=== PATIENT | female | born 1975 | race Native Hawaiian/Other Pacific Islander ===

== ENCOUNTER 2019-08-09 02:03 | Observation (INO) | payer OTHER ==
[~2019-08-09] VITALS: Ht 165.1 cm; Wt 90.9 kg
[2019-08-09 02:13] VITALS: BP 169/87; TEMP 97.7
[2019-08-09 02:45] LABS: PLATELET COUNT 258 K/uL (152-353)
[2019-08-09 02:57] LABS: POTASSIUM 3.4 mmol/L (3.6-5.2)
[2019-08-09 04:31] VITALS: BP 140/78; TEMP 98.6; Ht 165.1 cm; Wt 90.9 kg
[2019-08-09 08:00] VITALS: BP 140/62; TEMP 97.6
[2019-08-09 12:00] VITALS: BP 155/66; TEMP 97.7
[2019-08-09 16:00] VITALS: BP 144/74; TEMP 97.5
[2019-08-09] MEDS ORDERED: AZIT250T3 PO (16:19)
[2019-08-09] MEDS ORDERED: IPRATROPIUM/ INH (16:21)
[2019-08-09] MEDS ORDERED: PRED10TA27 PO (16:22)
--- NOTE | 2019-08-09 17:17 | NUR ---
PT DISCHARGED TO HOME. IV TO L AC WAS D/C'D, PRESSURE APPLIED, AND BANDAID APPLIED. PT TOLERATED WITH NO ACUTE DISTRESS NOTED. PT DECLINED TO BE TRANSPORTED OUT OF FACILITY VIA W/C AND OPTED TO AMBULATE AND ESCORTED BY FAMILY MEMBER. MEDS WERE SENT INTO [facility] IN [place] AND A LIST OF LOCAL PCP'S WERE GIVEN TO PT AND SHE WAS INSTRUCTED TO CONTACT ONE FOR A FOLLOW UP APPT. IN 3-5 DAYS. NO ACUTE DISTRESS NOTED.
== END 2019-08-09 17:14 | disposition home or self-care (01) ==
LOC: ED 02:03 → MED/SURG 03:28
PROVIDERS: ADMIT Student in an Organized Health Care Education/Training Program
DX: J45.901 Unspecified asthma with (acute) exacerbation (principal); Z72.0 Tobacco use
CPT/HCPCS: 80048; 83735; 85027; 87502; 93005; 94640; 94664; 94760; 96360; 96365; 96375; 99220; 99284; G0378; J0456; J1956; J2930

== ENCOUNTER 2019-09-15 16:49 | Inpatient (IN) | payer OTHER ==
[~2019-09-15] VITALS: Ht 165.1 cm; Wt 93.4 kg
[~2019-09-15 16:49] MED LIST: AZIT250T3 PO; IPRATROPIUM/ INH; PRED10TA27 PO
[2019-09-15 16:50] VITALS: BP 167/76; TEMP 98
[2019-09-15 17:17] LABS: PLATELET COUNT 306 K/uL (152-353)
[2019-09-15 23:00] VITALS: BP 159/85
[2019-09-15 23:22] VITALS: BP 123/92; TEMP 98.4; Ht 165.1 cm; Wt 93.4 kg
[2019-09-16] VITALS (18 sets, daily range): BP systolic 102–154; BP diastolic 64–92; TEMP 97.5–98.4
[2019-09-16 05:48] LABS: PLATELET COUNT 260 K/uL (152-353)
[2019-09-16 05:59] LABS: POTASSIUM 4.5 mmol/L (3.6-5.2)
[2019-09-16] MEDS ORDERED: ALBU0.0813 INH (16:55)
[2019-09-16] MEDS ORDERED: BUDE1AER3 INH (16:55)
[2019-09-16] MEDS ORDERED: CODELIQ8 PO (16:57)
[2019-09-16] MEDS ORDERED: XOPENEX 1.25MG INH 3 INH (16:58)
[2019-09-16] MEDS ORDERED: FLUOXETINE20 MG PO (16:58)
[2019-09-16] MEDS ORDERED: LEVAQUIN 500MG TAB PO (16:59)
[2019-09-16] MEDS ORDERED: IPRATROPIUM/ INH (16:59)
[2019-09-16] MEDS ORDERED: PRED10TA27 PO (17:00)
== END 2019-09-16 17:42 | disposition home or self-care (01) | DRG 192 ==
LOC: ED 16:49 → ICU 22:00
PROVIDERS: Family Medicine; ADMIT Internal Medicine
DX: J44.1 Chronic obstructive pulmonary disease with (acute) exacerbation (principal); F41.8 Other specified anxiety disorders; Z72.0 Tobacco use
CPT/HCPCS: 36415; 36600; 80053; 82805; 85027; 87502; 94640; 94660; 94664; 94760; 96365; 96374; 96375; 99285; J1100; J1650; J1956; J2060; J2270; J2930; J7040

== ENCOUNTER 2021-09-22 12:32 | Outpatient (CLI) | payer BC, OTHER ==
[~2021-09-22] VITALS: Ht 165.1 cm; Wt 95.3 kg
[~2021-09-22 12:32] MED LIST changes: +ALBU0.0813 INH; +BUDE1AER3 INH; +CODELIQ8 PO; +FLUOXETINE20 MG PO; +LEVAQUIN 500MG TAB PO; +XOPENEX 1.25MG INH 3 INH
== END 2021-09-22 22:08 | disposition home or self-care (01) ==
LOC: INF 12:32
PROVIDERS: ATTEND Internal Medicine
DX: U07.1 COVID-19 (principal); Z23 Encounter for immunization
CPT/HCPCS: 96365; M0244